=== PATIENT | female | born 1950 | race Caucasian/White ===

== ENCOUNTER 2017-05-18 22:00 | Inpatient (IN) | payer SELFPAY ==
[~2017-05-18 22:00] MED LIST: ACETAMINOPHEN 325 MG TAB PO PRN; FERR325C PO; ONDANSETRON HCL 4 MG/2 ML VIAL IVP PRN; SODIUM CHLORIDE 0.9% FLUSH 10 ML FLUSH IV FLUSH PRN
[2017-05-18 22:27] VITALS: BP 172/97; PULSE 103; RESP 21; TEMP 98.5; O2SAT 96
[2017-05-18] MEDS: SODIUM CHLORIDE 0.9% FLUSH 10 ML FLUSH IV FLUSH SCH (22:33)
--- NOTE | 2017-05-18 23:15 | HHI.HP ---
[facility] No Primary Care Physician Admission Diagnosis Obstructive jaundice secondary to liver mass . Diagnoses: (1) Liver mass (2) Obstructive jaundice Chief Complaint: "I looked yellow" Travel History International Travel<30 Days: No Contact w/Intl Traveler <30 Da: No History of Present Illness 66-year-old female with no significant medical history other than anemia who presents to the ED and [place] on 05/18/2017 for evaluation of painless jaundice and was found to have a large liver mass on CT scan. She was transferred to [facility] in [place] for further evaluation and management. The patient is seen in her hospital room after transfer from [place]. She is extremely pleasant and reports that she was in reasonably good health with no chronic medical conditions other than anxiety from the of her father in August and anemia that she's had since childhood. About 2-3 days ago, her and friend noted that she was looking yellow. When her friend came by to see her today, she told her she needed to go to the hospital to get checked because she was still looking severely discolored yellow. Location of symptom: entire skin surface. The patient denies any accompanying dizziness, chest pain, abdominal pain, shortness of breath, nausea, vomiting, diarrhea, bloody stool, hematuria, dysuria, or weakness. She does report dark to black stool that is chronic since she started taking iron for anemia. She reports weight loss resulting in her going from a clothing size of 20 to a size 14 over the past year. She attributed this weight loss to a "change in her taste buds" where she noted she did not like the same kind of foods that she used to like such as potato chips and soda. She reports eating multiple small meals per day and does not notice any change in her appetite. She has not had any pain. Of note, the patient reports continuing to have menstruation monthly - she has never experienced any menopause. 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 Small right-sided pleural effusion was noted. Liver cirrhosis with numerous varices noted mild ascites and anasarca. Review of Systems Except as stated in HPI: all other systems reviewed are Neg Past Family Social History Past Medical History Situational anxiety Anemia since she was a teenager Denies diabetes mellitus, hypertension, coronary artery disease, myocardial infarction, congestive heart failure, atrial fibrillation, COPD, asthma, emphysema, breathing problems, liver problems, hepatitis, kidney problems other than a remote history of pyelonephritis at age 22, DVT, PE, CVA, seizures, thyroid problems, or cancers. . Past Surgical History Tonsillectomy and adenoidectomy 1 . Reported Medications Reported Meds & Active Scripts Active Reported Iron (Ferrous Sulfate) 325 Mg Cap 324 Mg PO DAILY . Allergies: Coded Allergies: Penicillins (Verified Allergy, Unknown, 05/18/17) Active Ordered Medications . Current Medications Sodium Chloride (NS Flush) 2 ml UNSCH PRN IV FLUSH FLUSH AFTER USING IV ACCESS ; Start 05/18/17 at 21:00 Sodium Chloride (NS Flush) 2 ml BID IV FLUSH Last administered on 05/18/17t 22 :33; Start 05/18/17 at 21:00 Acetaminophen (Tylenol) 650 mg Q4H PRN PO TEMP > 100.4; Start 05/18/17 at 21: 00 Ondansetron HCl (Zofran Inj) 4 mg Q6H PRN IVP NAUSEA OR VOMITING; Start at 21:00 Family History Mother with emphysema, father age 77 from what sounds like aortic aneurysm . Social History The patient is originally from [place] and has 4 children and 8 grandchildren. She has been to her second for 33 years and lives in the [place] area. She moved to [place] when she was in her 20s - originally to [facility]. Tobacco: She has never smoked cigarettes though she has been experienced to heavy secondhand smoke Alcohol: Never was a heavy drinker and has not had an alcoholic beverage in over a year Illicit drugs: Remote use of marijuana when she was a teen but none since, denies any other illicit drug use such as IVDA or cocaine . Physical Exam Vital Signs Vital Signs Date Time Temp Pulse Resp B/P (MAP) Pulse Ox O2 Delivery O2 Flow Rate FiO2 05/18/17 22:27 98.5 103 21 172/97 (122 96 Physical Exam GENERAL: This is a very jaundiced female patient, in no apparent distress. SKIN: No rashes. Cool and dry. + jaundice. HEAD: Atraumatic. Normocephalic. EYES: + scleral icterus. No drainage. ENT: Nose without bleeding, purulent drainage. NECK: Trachea midline. No JVD or lymphadenopathy. CARDIOVASCULAR: Regular rate and rhythm without murmurs, gallops, or rubs. RESPIRATORY: Clear to auscultation. Breath sounds with diminished air exchange but equal bilaterally. No wheezes, rales, or rhonchi. GASTROINTESTINAL: Abdomen soft, non-tender, with large mass palpated right upper quadrant. Abdominal wall varices noted. No guarding. MUSCULOSKELETAL: Extremities without clubbing, cyanosis, or edema. No calf tenderness. She does have large ankles but states she's always had large ankles - no pitting edema noted. NEUROLOGICAL: Awake and alert. Motor and sensory grossly within normal limits. Normal speech. . Laboratory Labs Laboratory Tests Test 05/18/17 17:23 White Blood Count 8.0 TH/MM3 Red Blood Count 4.68 MIL/MM3 Hemoglobin 13.9 GM/DL Hematocrit 42.4 % Mean Corpuscular Volume 90.6 FL Mean Corpuscular Hemoglobin 29.7 PG Mean Corpuscular Hemoglobin Concent 32.8 % Red Cell Distribution Width 20.5 % Platelet Count 276 TH/MM3 Mean Platelet Volume 11.0 FL Immature Granulocyte % (Auto) 0.5 % Neutrophils (%) (Auto) 73.4 % Lymphocytes (%) (Auto) 17.0 % Monocytes (%) (Auto) 8.3 % Eosinophils (%) (Auto) 0.5 % Basophils (%) (Auto) 0.3 % Immature Granulocyte # (Auto) 0.0 TH/MM3 Neutrophils # (Auto) 5.9 TH/MM3 Lymphocytes # (Auto) 1.4 TH/MM3 Monocytes # (Auto) 0.7 TH/MM3 Eosinophils # (Auto) 0.0 TH/MM3 Basophils # (Auto) 0.0 TH/MM3 CBC Comment DIFF FINAL Differential Comment Urine Color ORANGE Urine Turbidity SL CLOUDY Urine pH 7.0 Urine Specific [place] 1.015 Urine Protein 300 OR GREATER mg/dL Urine Glucose (UA) 100 mg/dL Urine Ketones NEG mg/dL Urine Occult Blood SMALL Urine Nitrite POS Urine Bilirubin LARGE Urine Urobilinogen 4.0 MG/DL Urine Leukocyte Esterase TRACE Urine RBC 4-9 /hpf Urine WBC 15-19 /hpf Urine WBC Clumps RARE Urine Squamous Epithelial Cells > 8 /hpf Urine Renal Epithelial Cells 6-8 /hpf Urine Bacteria RARE /hpf Urine Hyaline Casts 3-5 /lpf Urine Granular Casts 6-9 /lpf Urine Coarse Granular Casts 3-5 /lpf Urine Waxy Casts /lpf Microscopic Urinalysis Comment CULTURE INDICATED Blood Urea Nitrogen 6 MG/DL Creatinine 0.80 MG/DL Random Glucose 119 MG/DL Total Protein 8.9 GM/DL Albumin 3.1 GM/DL Calcium Level 9.6 MG/DL Alkaline Phosphatase 699 U/L Aspartate Amino Transf (AST/SGOT) 174 U/L Alanine Aminotransferase (ALT/SGPT) 87 U/L Total Bilirubin 22.5 MG/DL Sodium Level 132 MEQ/L Potassium Level 3.4 MEQ/L Chloride Level 97 MEQ/L Carbon Dioxide Level 23.0 MEQ/L Anion Gap 12 MEQ/L Estimat Glomerular Filtration Rate 72 ML/MIN Lipase 113 U/L Acetaminophen Level LESS THAN 2.0 MCG/ML Ethyl Alcohol Level LESS THAN 3 MG/DL Imaging Last Impressions Abdomen/Pelvis CT 05/18/17 1058 Signed Impressions: Service Date/Time: Thursday, May 18, 2017 18:37 - CONCLUSION: 1. 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 2. Small right-sided pleural effusion. Liver cirrhosis with numerous varices as above. Mild ascites and anasarca. Satya Bridges MD Caprini VTE Risk Assessment Caprini VTE Risk Assessment: Mod/High Risk (score >= 2) Caprini Risk Assessment Model Point Value = 1 Point Value = 2 Point Value = 3 Point Value = 5 Age 41-60 Minor surgery BMI > 25 kg/m2 Swollen legs Varicose veins or History of unexplained or recurrent spontaneous Oral contraceptives or hormone replacement Sepsis (< 1 month) Serious lung disease, including pneumonia (< 1 month) Abnormal pulmonary function Acute myocardial infarction Congestive heart failure (< 1 month) History of inflammatory bowel disease Medical patient at bed rest Age 61-74 Arthroscopic surgery Major open surgery (> 45 min) Laparoscopic surgery (> 45 min) Malignancy Confined to bed (> 72 hours) Immobilizing plaster cast Central venous access Age >= 75 History of VTE Family history of VTE Factor V Leiden Prothrombin [id number] Lupus anticoagulant Anticardiolipin antibodies Elevated serum homocysteine Heparin-induced thrombocytopenia Other congenital or acquired thrombophilia Stroke (< 1 month) Elective arthroplasty Hip, pelvis, or leg fracture Acute spinal cord injury (< 1 month) Prophylaxis Regimen Total Risk Factor Score Risk Level Prophylaxis Regimen 0-1 Low Early ambulation 2 Moderate Order ONE of the following: *Sequential Compression Device (SCD) *Heparin 5000 units SQ BID 3-4 Higher Order ONE of the following medications: *Heparin 5000 units SQ TID *Enoxaparin/Lovenox 40 mg SQ daily (WT < 150 kg, CrCl > 30 mL/min) *Enoxaparin/Lovenox 30 mg SQ daily (WT < 150 kg, CrCl > 10-29 mL/min) *Enoxaparin/Lovenox 30 mg SQ BID (WT < 150 kg, CrCl > 30 mL/min) AND/OR *Sequential Compression Device (SCD) 5 or more Highest Order ONE of the following medications: *Heparin 5000 units SQ TID (Preferred with Epidurals) *Enoxaparin/Lovenox 40 mg SQ daily (WT < 150 kg, CrCl > 30 mL/min) *Enoxaparin/Lovenox 30 mg SQ daily (WT < 150 kg, CrCl > 10-29 mL/min) *Enoxaparin/Lovenox 30 mg SQ BID (WT < 150 kg, CrCl > 30 mL/min) AND *Sequential Compression Device (SCD) Assessment and Plan Problem List: (1) Liver mass ICD Code: R16.0 - Hepatomegaly, not elsewhere classified (2) Obstructive jaundice ICD Code: K83.8 - Other specified diseases of biliary tract (3) Elevated liver function tests ICD Code: R79.89 - Other specified abnormal findings of blood chemistry (4) Hypokalemia ICD Code: E87.6 - Hypokalemia (5) Hyponatremia ICD Code: E87.1 - Hypo-osmolality and hyponatremia (6) Situational anxiety ICD Code: F41.8 - Other specified anxiety disorders (7) Abnormal urinalysis ICD Code: R82.90 - Unspecified abnormal findings in urine Assessment and Plan 66-year-old female with no significant medical history other than anemia who presents to the ED and [facility] on 05/18/2017 for evaluation of painless jaundice and was found to have a large liver mass on CT scan. She was transferred to [facility] in [place] for further evaluation and management. Obstructive jaundice due to likely malignant liver mass - consult gastroenterology - patient will need a liver biopsy - NPO after midnight - monitor vital signs q4h Elevated liver function tests- secondary to biliary obstruction - Total bilirubin 22.5 on admission - AST 174, ALT 87, alkaline phosphatase 699 on admission - Acetaminophen less than 2.0 and ethyl alcohol level less than 3 - Monitor CMP - follow trends Hypokalemia - Replace potassium - Recheck BMP in a.m. and replace potassium if needed Hyponatremia - suspect dilutional due to advanced liver disease - Monitor BMP Situational anxiety - patient refuses any medicinal treatments for anxiety - continue to monitor Abnormal UA - culture was indicated - await results - unlikely UTI, patient asymptomatic, WBC normal, afebrile - will not add antibiotics DVT prophylaxis - SCDs/TEDs Discussed Condition With Patient and Dr. Chavez . Physician Certification 2 Midnight Certification Type: Admission for Inpatient Services Order for Inpatient Services The services are ordered in accordance with Medicare regulations or non- Medicare payer requirements, as applicable. In the case of services not specified as inpatient-only, they are appropriately provided as inpatient services in accordance with the 2-midnight benchmark. Estimated LOS (days): 3 days is the estimated time the patient will need to remain in the hospital, assuming treatment plan goals are met and no additional complications. Post-Hospital Plan: Home Beth Mccarthy May 18, 2017 23:15
[2017-05-18] MEDS ORDERED: POTASSIUM CHLORIDE 20 MEQ CONTROLLED RELEASE TAB PO ONE (23:45)
[2017-05-19 00:11] VITALS: BP 150/90; PULSE 96; RESP 16; TEMP 98.6; O2SAT 98
[2017-05-19 05:37] VITALS: BP 140/96; PULSE 126; RESP 18; TEMP 98.4; O2SAT 94
[2017-05-19 07:37] LABS: AUTOMATED NEUTROPHIL # 4.9 TH/MM3 (1.8-7.7); BASOPHIL % 0.5 % (0.0-2.0); EOSINOPHIL % 0.7 % (0.0-4.0); HEMATOCRIT 38.3 % (35.0-46.0); HEMO FLAGS DIFF FINAL; LYMPH % 16.1 % (9.0-44.0); LYMPHOCYTE # 1.1 TH/MM3 (1.0-4.8); MEAN CELL VOLUME 88.3 FL (80.0-100.0); MONO % 10.8 % (0.0-8.0); NEUT % 71.9 % (16.0-70.0); PLATELET COUNT 254 TH/MM3 (150-450); RED BLOOD COUNT 4.34 MIL/MM3 (4.00-5.30); RED CELL DISTRIBUTION WIDTH 19.6 % (11.6-17.2); WHITE BLOOD COUNT 6.8 TH/MM3 (4.0-11.0)
[2017-05-19 07:58] LABS: ALT (GPT) 71 U/L (10-53)
[2017-05-19 08:00] VITALS: BP 170/100; PULSE 97; RESP 18; TEMP 98.3; O2SAT 97
[2017-05-19 08:26] LABS: ALKALINE PHOSPHATASE 580 U/L (45-117); ANION GAP 8 MEQ/L (5-15); AST (GOT) 138 U/L (15-37); BICARBONATE 26.9 MEQ/L (21.0-32.0); BLOOD UREA NITROGEN 5 MG/DL (7-18); CHLORIDE 100 MEQ/L (98-107); GLOMERULAR FILTRATION RATE 101 ML/MIN (>89); POTASSIUM 3.8 MEQ/L (3.5-5.1); SODIUM (NA) 135 MEQ/L (136-145); TOTAL BILIRUBIN ADULT 20.5 MG/DL (0.2-1.0)
[2017-05-19] MEDS: FERROUS SULFATE 325 MG (65 MG ELEMENTAL IRON) TAB PO SCH (09:39)
[2017-05-19] MEDS: SODIUM CHLORIDE 0.9% FLUSH 10 ML FLUSH IV FLUSH SCH ×2 (09:41→20:15)
--- NOTE | 2017-05-19 10:03 | PD.CONS ---
HPI History of Present Illness This is a 66 year old female who presented to the ED in [place] with c/o yellowing of skin. No other associated symptoms reported. Patient states that about 2-3 days ago her and friends noted her looking "yellow." She decided to wait a few days and see if it would go away. When her friend went to her house on 05/18 she told her she needed to go to the hospital for evaluation. [place] ED noted large liver mass on CT scan. Patient was subsequently transferred to [facility] in [place] for further evaluation. No significant medical history reported by patient, besides anemia. Patient denies chest pain, shortness of breath, abdominal pain, nausea, vomiting, change in appetite, or change in bowel habits. Does reports weight loss over past year ( size 20 to size 14). Reports she has had a change in taste, which included a dislike in potato chips and soda. Patient states she still has a good appetite and eats multiple small erik a day. (Susana Tidwell) PFSH Past Medical History Situational anxiety, secondary to father's in August 2016 Anemia, since she was a teenager Past Surgical History Tonsillectomy and adenoidectomy 1 (Susana Tidwell) Coded Allergies: Penicillins (Verified Allergy, Unknown, 05/18/17) Medications Current Medications Medications (Trade) Dose Ordered Sig/Annabelle Route PRN Reason Start Time Stop Time Status Last Admin Dose Admin Sodium Chloride (NS Flush) 2 ml UNSCH PRN IV FLUSH FLUSH AFTER USING IV ACCESS 05/18/17 21:00 Sodium Chloride (NS Flush) 2 ml BID IV FLUSH 05/18/17 21:00 05/19/17 09:41 Acetaminophen (Tylenol) 650 mg Q4H PRN PO TEMP > 100.4 05/18/17 21:00 Ondansetron HCl (Zofran Inj) 4 mg Q6H PRN IVP NAUSEA OR VOMITING 05/18/17 21:00 Ferrous Sulfate (Ferrous Sulfate) 325 mg DAILY PO 05/19/17 09:00 05/19/17 09:39 Family History Mother, emphysema Father age 77 (aortic aneurysm?) Social History ETOH, denies alcohol use in over a year. Reports she was never a heavy drinker Tobacco, denies use. Heavy secondhand smoke exposure Illicit Drugs, denies (Susana Tidwell) Review of Systems Constitutional: DENIES: Diaphoretic episodes, Fatigue, Fever, Weight gain, Weight loss, Chills, Dizziness, Change in appetite, Night Sweats Endocrine: DENIES: Polydipsia, Polyuria Eyes: DENIES: Blurred vision, Photosensitivity, Double Vision Ears, nose, mouth, throat: DENIES: Hearing loss, Vertigo, Oral lesions, Throat pain, Hoarseness Respiratory: DENIES: Cough, Wheezing, Hemoptysis, Sputum production, Shortness of breath Cardiovascular: DENIES: Chest pain, Palpitations, Syncope, Lower Extremity Edema, Orthopnea, Claudication Gastrointestinal: DENIES: Abdominal pain, Black stools, Bloody stools, Constipation, Diarrhea, Nausea, Vomiting, Difficulty Swallowing, Anorexia, Odynophagia, Swelling of Abdomen, Heartburn, Hematemesis Genitourinary: DENIES: Urinary frequency, Urinary incontinence, Urgency, Hematuria, Dysuria, Nocturia Musculoskeletal: DENIES: Joint pain, Muscle aches, Stiffness, Joint Swelling, Back pain, Neck pain Integumentary: COMPLAINS OF: Abnormal pigmentation, DENIES: Nail changes, Pruritus, Rash, Jaundice Hematologic/lymphatic: DENIES: Bruising, Lymphadenopathy Immunologic/allergic: DENIES: Eczema, Urticaria Neurologic: DENIES: Abnormal gait, Headache, Localized weakness, Paresthesias Psychiatric: DENIES: Anxiety, Confusion, Mood changes, Depression, Agitation, Suicidal Ideation (Susana Tidwell) GI Exam Vitals I&O Vital Signs Date Time Temp Pulse Resp B/P (MAP) Pulse Ox O2 Delivery O2 Flow Rate FiO2 05/19/17 05:37 98.4 126 18 140/96 (111) 94 05/19/17 00:11 98.6 96 16 150/90 (110) 98 05/18/17 22:27 98.5 103 21 172/97 (122) 96 I/O 05/18/17 05/18/17 05/18/17 05/19/17 05/19/17 05/19/17 07:00 15:00 23:00 07:00 15:00 23:00 Intake Total 360 ml Balance 360 ml Intake Oral 360 ml # Voids 1 Laboratory Test 05/19/17 07:13 White Blood Count 6.8 TH/MM3 Red Blood Count 4.34 MIL/MM3 Hemoglobin 13.0 GM/DL Hematocrit 38.3 % Mean Corpuscular Volume 88.3 FL Mean Corpuscular Hemoglobin 30.0 PG Mean Corpuscular Hemoglobin Concent 34.0 % Red Cell Distribution Width 19.6 % Platelet Count 254 TH/MM3 Mean Platelet Volume 8.2 FL Neutrophils (%) (Auto) 71.9 % Lymphocytes (%) (Auto) 16.1 % Monocytes (%) (Auto) 10.8 % Eosinophils (%) (Auto) 0.7 % Basophils (%) (Auto) 0.5 % Neutrophils # (Auto) 4.9 TH/MM3 Lymphocytes # (Auto) 1.1 TH/MM3 Monocytes # (Auto) 0.7 TH/MM3 Eosinophils # (Auto) 0.0 TH/MM3 Basophils # (Auto) 0.0 TH/MM3 CBC Comment DIFF FINAL Differential Comment Blood Urea Nitrogen 5 MG/DL Creatinine 0.60 MG/DL Random Glucose 83 MG/DL Total Protein 7.6 GM/DL Albumin 2.7 GM/DL Calcium Level 9.3 MG/DL Alkaline Phosphatase 580 U/L Aspartate Amino Transf (AST/SGOT) 138 U/L Alanine Aminotransferase (ALT/SGPT) 71 U/L Total Bilirubin 20.5 MG/DL Sodium Level 135 MEQ/L Potassium Level 3.8 MEQ/L Chloride Level 100 MEQ/L Carbon Dioxide Level 26.9 MEQ/L Anion Gap 8 MEQ/L Estimat Glomerular Filtration Rate 101 ML/MIN Physical Examination HEENT: Normocephalic; atraumatic. + sclera icterus NECK: Neck is supple. CHEST: CTA CARDIAC: RRR with no murmur gallop or rubs. ABDOMEN: Soft, nondistended, nontender; RUQ large mass on palpation. + abdominal wall varices. EXTREMITIES: No clubbing, cyanosis, or edema. SKIN: Normal; no rash; no jaundice. COMMUNICABLE DISEASE SPECIALIST: No focal deficits; alert and oriented x 3 (Susana Tidwell) Assessment and Plan Plan ASSESSMENT: - Obstructive jaundice, due to liver mass. Likely malignant. Liver function tests elevated secondary to biliary obstruction. T. Bili 20.5, AST 138, ALT 71, ALK Phos 580. CT Abdomen/Pelvis 05/18/17--1. 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 2. Small right-sided pleural effusion. Liver cirrhosis with numerous varices as above. Mild ascites and anasarca. Patient is asymptomatic. Denies abdominal pain. No nausea or vomiting. Has good appetite. PLAN: - [place] - Liver biopsy - NPO after MN - Monitor labs - Supportive care - Further recommendations to follow based on results of above. Patient seen and examined by Dr. Bello and myself and this note is written on his behalf. (Susana Tidwell) Physician Comments Patient seen and examined Agree with above Continue with current supportive care Monitor labs First I would recommend tumor marker evaluation If the tumor markers are nondiagnostic then we can pursue a liver biopsy Case discussed with Dr. Soria (Luan Bello MD) Susana Tidwell May 19, 2017 10:03 Luan Bello MD May 19, 2017 13:29
--- NOTE | 2017-05-19 10:03 | HHI.PR ---
Subjective Remarks Follow-up for painless jaundice, imaging evidence of large liver mass. Patient is currently doing well. Denies any chest pain, shortness of breath, fever or chills. She reports weight loss in the last 1 year although could not quantify. She reports no heavy alcohol history, no history of hepatitis B or C that she knows of. Objective Vitals Vital Signs Date Time Temp Pulse Resp B/P (MAP) Pulse Ox O2 Delivery O2 Flow Rate FiO2 05/19/17 05:37 98.4 126 18 140/96 (111) 94 05/19/17 00:11 98.6 96 16 150/90 (110) 98 05/18/17 22:27 98.5 103 21 172/97 (122) 96 I/O 05/18/17 05/18/17 05/18/17 05/19/17 05/19/17 05/19/17 07:00 15:00 23:00 07:00 15:00 23:00 Intake Total 360 ml Balance 360 ml Intake Oral 360 ml # Voids 1 Result Diagram: 05/19/17 0713 05/19/17 0713 Imaging Abdomen/Pelvis CT 05/18/17 1718 Signed Impressions: Service Date/Time: Thursday, May 18, 2017 18:37 - CONCLUSION: 1. 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 2. Small right-sided pleural effusion. Liver cirrhosis with numerous varices as above. Mild ascites and anasarca. Satya Bridges MD Objective Remarks GENERAL: Alert, oriented 3, NAD. SKIN: Warm and dry. Diffuse jaundice appearance. HEAD: Normocephalic. EYES: scleral icterus present. No injection or drainage. NECK: Supple, trachea midline. No JVD or lymphadenopathy. CARDIOVASCULAR: Regular rate and rhythm without murmurs, gallops, or rubs. RESPIRATORY: Breath sounds equal bilaterally. No accessory muscle use. GASTROINTESTINAL: Abdomen soft, non-tender, nondistended. MUSCULOSKELETAL: No cyanosis, or edema. BACK: Nontender without obvious deformity. No CVA tenderness. Procedures None A/P Problem List: (1) Liver mass ICD Code: R16.0 - Hepatomegaly, not elsewhere classified (2) Obstructive jaundice ICD Code: K83.8 - Other specified diseases of biliary tract (3) Elevated liver function tests ICD Code: R79.89 - Other specified abnormal findings of blood chemistry (4) Hypokalemia ICD Code: E87.6 - Hypokalemia (5) Hyponatremia ICD Code: E87.1 - Hypo-osmolality and hyponatremia (6) Situational anxiety ICD Code: F41.8 - Other specified anxiety disorders (7) Abnormal urinalysis ICD Code: R82.90 - Unspecified abnormal findings in urine Assessment and Plan 66-year-old female with no significant medical history other than anemia who presents to the ED and [place] on 05/18/2017 for evaluation of painless jaundice and was found to have a large liver mass on CT scan. She was transferred to [facility] in [place] for further evaluation and management. Probable hepatocellular carcinoma - CT abd/pelvis showed a large mass. Images reviewed by me. - consult gastroenterology - NPO after midnight for possible liver biopsy. - Discussed with GI and radiology. Radiology does not feel Triple phase CT scan will give any additional info. - AFP along with CEA and CA19-9 are pending. If AFP is significantly elevated , perhaps biopsy could be avoided as well. - Will consider Oncology consult in the AM based on further lab work. Elevated liver function tests- secondary to biliary obstruction - Total bilirubin 22.5 on admission - AST 174, ALT 87, alkaline phosphatase 699 on admission. These are 138, 71, 580 respectively today. - Acetaminophen less than 2.0 and ethyl alcohol level less than 3 Mild Hypokalemia Mild Hyponatremia - Replaced potassium. K+ today 3.8. Na 135. Full code. SCDs. Will consider pharmacological DVT prophylaxis after biopsy tomorrow. Isaac Soria DO May 19, 2017 10:03 am
[2017-05-19] MEDS ORDERED: MORPHINE SULFATE 2 MG/ML INJ IV PUSH PRN (14:00)
[2017-05-19 15:00] VITALS: BP 152/87; PULSE 95; RESP 18; TEMP 98.9; O2SAT 96
[2017-05-19 19:45] VITALS: BP 97/55; PULSE 100; RESP 17; TEMP 98.2; O2SAT 96
[2017-05-19 20:13] VITALS: BP 165/97; PULSE 100; RESP 20; TEMP 98.6; O2SAT 98
[2017-05-20 00:32] VITALS: BP 164/98; PULSE 85; RESP 16; TEMP 98.3; O2SAT 95
[2017-05-20 05:52] VITALS: BP 151/95; PULSE 87; RESP 18; TEMP 97.9; O2SAT 96
[2017-05-20 07:04] LABS: INTERNATIONAL NORMALIZED RATIO 1.2 RATIO; PROTHROMBIN TIME - PATIENT 13.4 SEC (9.8-11.6)
[2017-05-20] MEDS: SODIUM CHLORIDE 0.9% FLUSH 10 ML FLUSH IV FLUSH SCH ×2 (08:43→20:19)
[2017-05-20 08:50] VITALS: BP 171/99; PULSE 85; RESP 18; TEMP 97.7; O2SAT 100
--- NOTE | 2017-05-20 08:59 | HHI.GIFU ---
Subjective Remarks Resting in bed. No fevers/chills, nausea, vomiting, or abdominal pain. Asking how long she will be in the hospital and states she is anxious to go home. Objective Vitals I&O Vital Signs Date Time Temp Pulse Resp B/P (MAP) Pulse Ox O2 Delivery O2 Flow Rate FiO2 05/20/17 05:52 97.9 87 18 151/95 (113) 96 05/20/17 00:32 98.3 85 16 164/98 (120) 95 05/19/17 21:24 16 05/19/17 20:13 98.6 100 20 165/97 (119) 98 05/19/17 19:45 98.2 100 17 97/55 (69) 96 05/19/17 15:00 98.9 95 18 152/87 (108) 96 I/O 05/19/17 05/19/17 05/19/17 05/20/17 05/20/17 05/20/17 07:00 15:00 23:00 07:00 15:00 23:00 Intake Total 360 ml 1080 ml Balance 360 ml 1080 ml Intake Oral 360 ml 1080 ml # Voids 1 3 Laboratory Laboratory Tests Test 05/19/17 17:52 05/20/17 06:14 Tumor Marker Alpha Fetoprotein 24.8 Carcinoembryonic Antigen 0.9 CA 19-9 Antigen 3.4 Prothrombin Time 13.4 Prothromb Time International Ratio 1.2 Physical Exam HEENT: Normocephalic; atraumatic; + jaundice. CHEST: CTA CARDIAC: RRR ABDOMEN: Soft, mildly distended ascites, nontender; bowel sounds are present in all four quadrants. EXTREMITIES: BLE edema. SKIN: Normal; no rash; + jaundice. FORM STRIPPER: No focal deficits; alert and oriented times three. Assessment and Plan Plan ASSESSMENT: - Painless obstructive jaundice, due to liver mass, likely malignant. CT Abdomen /Pelvis 05/18/17--1. 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 2. Small right-sided pleural effusion. Liver cirrhosis with numerous varices as above. Mild ascites and anasarca. Asymptomatic. Hepatitis panel pending. Rpt. labs today. - Liver mass. AFP 24.8, CEA 0.9, Ca19-9 3.4. Going for liver biopsy today. - Liver cirrhosis with varcies and ascites. Pt unaware of this. Never a heavy drinker, has not had any ETOH in past year. - Abnormal weight loss. States decreased appetite, change in taste with a drop in size from 20-14 over past year. - Mild hypokalemia, hyponatremia. Per attending. PLAN: - NPO for liver biopsy - CT guided liver biopsy - CBC, CMP today - Await hepatitis - Will get liver workup given evidence of cirrhosis with no obvious etiology - Supportive care - Further recommendations to follow based on results of above. - Pt seen and examined by Dr. Mckeon and myself and this note is written on his behalf. Leslye Barrios May 20, 2017 08:59
[2017-05-20] MEDS ORDERED: amLODIPine BESYLATE 5 MG TAB PO ONE (09:45)
--- NOTE | 2017-05-20 10:05 | HHI.PR ---
Subjective Remarks Follow-up for painless jaundice, imaging evidence of large liver mass. Patient is currently doing well. No acute concerns. Waiting for biopsy. Objective Vitals Vital Signs Date Time Temp Pulse Resp B/P (MAP) Pulse Ox O2 Delivery O2 Flow Rate FiO2 05/20/17 08:50 97.7 171/99 (123) 05/20/17 05:52 97.9 87 18 151/95 (113) 96 05/20/17 00:32 98.3 85 16 164/98 (120) 95 05/19/17 21:24 16 05/19/17 20:13 98.6 100 20 165/97 (119) 98 05/19/17 19:45 98.2 100 17 97/55 (69) 96 05/19/17 15:00 98.9 95 18 152/87 (108) 96 I/O 05/19/17 05/19/17 05/19/17 05/20/17 05/20/17 05/20/17 07:00 15:00 23:00 07:00 15:00 23:00 Intake Total 360 ml 1080 ml Balance 360 ml 1080 ml Intake Oral 360 ml 1080 ml # Voids 1 3 Result Diagram: 05/19/1771205/19/17712 Objective Remarks GENERAL: Alert, oriented 3, NAD. SKIN: Warm and dry. Diffuse jaundice appearance. HEAD: Normocephalic. EYES: scleral icterus present. No injection or drainage. NECK: Supple, trachea midline. No JVD or lymphadenopathy. CARDIOVASCULAR: Regular rate and rhythm without murmurs, gallops, or rubs. RESPIRATORY: Breath sounds equal bilaterally. No accessory muscle use. GASTROINTESTINAL: Abdomen soft, non-tender, nondistended. MUSCULOSKELETAL: No cyanosis, or edema. BACK: Nontender without obvious deformity. No CVA tenderness. Procedures None A/P Problem List: (1) Liver mass ICD Code: R16.0 - Hepatomegaly, not elsewhere classified (2) Obstructive jaundice ICD Code: K83.8 - Other specified diseases of biliary tract (3) Elevated liver function tests ICD Code: R79.89 - Other specified abnormal findings of blood chemistry (4) Hypokalemia ICD Code: E87.6 - Hypokalemia (5) Hyponatremia ICD Code: E87.1 - Hypo-osmolality and hyponatremia (6) Situational anxiety ICD Code: F41.8 - Other specified anxiety disorders (7) Abnormal urinalysis ICD Code: R82.90 - Unspecified abnormal findings in urine Assessment and Plan 66-year-old female with no significant medical history other than anemia who presents to the ED and [place] on 05/18/2017 for evaluation of painless jaundice and was found to have a large liver mass on CT scan. She was transferred to [facility] in [place] for further evaluation and management. Probable hepatocellular carcinoma - CT abd/pelvis showed a large mass. Images reviewed by me. - consult gastroenterology - Liver biopsy is pending. - AFP 24.8, CEA 0.9, CA 19-9 3.4. Elevated liver function tests- secondary to biliary obstruction - Total bilirubin 22.5 on admission - AST 174, ALT 87, alkaline phosphatase 699 on admission. These are 138, 71, 580 - Acetaminophen less than 2.0 and ethyl alcohol level less than 3 Mild Hypokalemia Mild Hyponatremia - Replaced potassium. K+ 3.8. Na 135. Full code. SCDs. Discharge plan: If cleared by GI and oncology, patient can potentially be discharged home with outpatient follow up with GI, Oncology. Isaac Soria DO May 20, 2017 10:05 am
[2017-05-20] MEDS ORDERED: MIDAZOLAM HCL 2 MG/2 ML VIAL ONE (10:50)
[2017-05-20] MEDS ORDERED: LIDOCAINE HCL 1% 20 ML VIAL ONE (11:09)
--- NOTE | 2017-05-20 12:03 | PD.RAD ---
Post CT Procedure Prog Note Pre Procedure Diagnosis: (1) Liver mass Post Procedure Diagnosis: (1) Liver mass Procedure Date: May 20, 2017 Supervising Radiologist: Alfonso Manzano Anesthesia: Conscious Sedation Plan of Activity Patient to Unit: Nursing Unit Patient Condition: Good See PACS Report for procedural detail/treatment Alfonso Manzano MD May 20, 2017 12:03
[2017-05-20] MEDS ORDERED: GELATIN 12 MM/7 MM FOAM ONE (12:28)
--- NOTE | 2017-05-20 13:17 | RADRPT ---
EXAM DATE/TIME: 05/20/2017 11:38 [place] COMPARISON: No previous studies available for comparison. INDICATIONS : Painless jaundice with large infiltrative central hepatic mass SEDATION TIME: 15 minutes BIOPSY SITE: Liver MEDICATION(S): 1.) 2 mg midazolam (Versed) IV 2.) 100 mcg fentanyl (Sublimaze) IV DEVICE(S): 1.) 18 gauge BioPince needle 2.) 15 gauge Temno core biopsy needle introducer MEDICAL HISTORY : None. SURGICAL HISTORY : None. ENCOUNTER: Initial ACUITY: 3 days PAIN SCORE: 0/10 LOCATION: Right upper quadrant A total of two core specimen(s) were obtained and sent to the laboratory for pathologic evaluation. PROCEDURE: 1. CT guided liver biopsy. 2. Conscious sedation with continuous EKG and oximetry monitoring. 3. EKG and oximetry remained stable throughout the procedure. Prior to the procedure informed consent was obtained. Any appropriate prior imaging studies were rev iewed. Using automated exposure control and adjustment of the mA and/or kV according to patient size, radiat ion dose was kept as low as reasonably achievable to obtain optimal diagnostic quality images. DICOM format image data is available electronically for review and comparison. The site was prepped in a sterile fashion. Full sterile technique was used, including cap, mask, val rile gloves and gown and a large sterile sheet. Hand hygiene and 2% chlorhexidine and/or betadine/al cohol prep was utilized per protocol for cutaneous antisepsis. The skin and subcutaneous tissues wer e infiltrated with local anesthetic solution. With CT guidance the previously identified target was localized. Biopsy was performed using the presc ribed needle as above. Adequate hemostasis was obtained with compression at the puncture site. Follow-up CT scan reveals no hemorrhage. The patient tolerated the procedure well and there were no complications. The patient was returned to the Radiology Outpatient Unit in stable condition. CONCLUSION: Uncomplicated CT guided biopsy. Alfonso Manzano MD on May 20, 2017 at 13:14 Board Certified Radiologist. This report was verified electronically.
[2017-05-20 15:40] LABS: AUTOMATED NEUTROPHIL # 5.6 TH/MM3 (1.8-7.7); BASOPHIL % 0.5 % (0.0-2.0); EOSINOPHIL % 0.5 % (0.0-4.0); HEMATOCRIT 41.9 % (35.0-46.0); HEMO FLAGS DIFF FINAL; LYMPH % 13.3 % (9.0-44.0); MEAN CELL VOLUME 89.6 FL (80.0-100.0); MEAN CORPUSCULAR HGB CONC 33.5 % (32.0-36.0); NEUT % 77.7 % (16.0-70.0); PLATELET COUNT 285 TH/MM3 (150-450); RED BLOOD COUNT 4.67 MIL/MM3 (4.00-5.30); RED CELL DISTRIBUTION WIDTH 20.5 % (11.6-17.2); WHITE BLOOD COUNT 7.2 TH/MM3 (4.0-11.0)
[2017-05-20 16:01] LABS: ALKALINE PHOSPHATASE 643 U/L (45-117); ANION GAP 7 MEQ/L (5-15); AST (GOT) 184 U/L (15-37); BICARBONATE 21.3 MEQ/L (21.0-32.0); BLOOD UREA NITROGEN 6 MG/DL (7-18); CHLORIDE 100 MEQ/L (98-107); FERRITIN 342 NG/ML (8-252); GLOMERULAR FILTRATION RATE 73 ML/MIN (>89); POTASSIUM 5.6 MEQ/L (3.5-5.1); SODIUM (NA) 128 MEQ/L (136-145); TOTAL BILIRUBIN ADULT 24.6 MG/DL (0.2-1.0); TRANSFERRIN IRON PROFILE 231 MG/DL (200-360)
[2017-05-20 16:25] LABS: ALT (GPT) 74 U/L (10-53)
[2017-05-20 17:00] VITALS: BP 157/87; PULSE 87; RESP 18; TEMP 99; O2SAT 100
[2017-05-20] MEDS: FERROUS SULFATE 325 MG (65 MG ELEMENTAL IRON) TAB PO SCH (18:03)
[2017-05-20] MEDS: amLODIPine BESYLATE 5 MG TAB PO SCH (19:06)
[2017-05-20 20:30] VITALS: BP 143/78; PULSE 95; RESP 18; TEMP 98.6; O2SAT 97
[2017-05-21 00:03] VITALS: BP 140/85; PULSE 95; RESP 18; TEMP 98.2; O2SAT 96
[2017-05-21 04:35] VITALS: BP 142/77; PULSE 87; RESP 16; TEMP 98; O2SAT 94
[2017-05-21 06:05] LABS: AUTOMATED NEUTROPHIL # 4.7 TH/MM3 (1.8-7.7); BASOPHIL % 0.3 % (0.0-2.0); EOSINOPHIL % 0.7 % (0.0-4.0); HEMATOCRIT 36.9 % (35.0-46.0); HEMO FLAGS DIFF FINAL; LYMPH % 14.2 % (9.0-44.0); LYMPHOCYTE # 0.9 TH/MM3 (1.0-4.8); MEAN CELL VOLUME 88.8 FL (80.0-100.0); MEAN CORPUSCULAR HEMOGLOBIN 30.5 PG (27.0-34.0); MEAN CORPUSCULAR HGB CONC 34.3 % (32.0-36.0); MONO % 8.8 % (0.0-8.0); PLATELET COUNT 249 TH/MM3 (150-450); RED BLOOD COUNT 4.16 MIL/MM3 (4.00-5.30); RED CELL DISTRIBUTION WIDTH 20.3 % (11.6-17.2); WHITE BLOOD COUNT 6.2 TH/MM3 (4.0-11.0)
[2017-05-21 06:42] LABS: ALKALINE PHOSPHATASE 578 U/L (45-117); ALT (GPT) 65 U/L (10-53); ANION GAP 9 MEQ/L (5-15); AST (GOT) 132 U/L (15-37); BICARBONATE 25.3 MEQ/L (21.0-32.0); BLOOD UREA NITROGEN 6 MG/DL (7-18); CHLORIDE 100 MEQ/L (98-107); GLOMERULAR FILTRATION RATE 111 ML/MIN (>89); POTASSIUM 3.6 MEQ/L (3.5-5.1); SODIUM (NA) 134 MEQ/L (136-145)
--- NOTE | 2017-05-21 07:02 | MB ---
cc: KATE REAVES M.D. DATE OF CONSULTATION 05/20/2017 REASON FOR CONSULTATION Consult requested by hospitalist for evaluation of liver mass which is highly suspicious for malignancy. HISTORY OF PRESENT ILLNESS This is a 66-year-old female. She does not have any significant medical problems. She does not see any local family doctor as she does not have any health insurance. She lives in the [place] Area. She presented to the emergency room in [place] over the weekend when her family noticed that he she was jaundiced. She has no pain. She had a CAT scan of the abdomen and pelvis which showed a large liver mass. The patient was subsequently transferred to [facility] for further workup. GI has been consulted. The patient underwent liver biopsy today by interventional radiologist. The pathology report is pending. I have been asked to see the patient for further evaluation. REVIEW OF SYSTEMS The patient denies any weight loss. She denies any abdominal pain. She denies any nausea or vomiting. She is complaining of being yellow. The rest of the review of systems is negative. PAST MEDICAL HISTORY Anxiety. PAST SURGICAL HISTORY Tonsillectomy and adenoidectomy x1. ALLERGIES PENICILLIN MEDICATIONS Prior to coming to the hospital - [place]. FAMILY HISTORY Distant cousin had lung cancer in 1980s. SOCIAL HISTORY The patient does not smoke cigarettes, does not drink alcohol. She is a homemaker. PHYSICAL EXAMINATION GENERAL: This is a well-developed, well-nourished white female in no apparent distress. VITAL SIGNS: Temperature 97.7, heart rate is 87, blood pressure 151/95, O2 saturation 96%. HEENT: PERRLA, EOMI. Sclerae deeply icteric. No oral lesions noted. NECK: No lymphadenopathy noted. LUNGS: Clear. No wheezing, rhonchi or rales. HEART: Regular rate and rhythm. ABDOMEN: Soft. Tenderness noted in the right upper quadrant due to the recent liver biopsy. EXTREMITIES: No pedal edema. NEUROLOGY: Awake, alert, oriented x 3. SKIN: No significant lesions noted. RADIOLOGICAL STUDIES Reviewed on the EMR. LABORATORY DATA Lab studies reviewed in the EMR ASSESSMENT A large 16.8 cm mass in the right lobe of the liver with intrahepatic biliary ductal dilatation and metastatic kizzy adenopathy to the zafar hepatis measuring up to 3.6 cm. There is also a small right-sided pleural effusion noted. She also has liver cirrhosis with numerous varices, mild ascites and anasarca. PLAN 1. I have reviewed her available records and I have discussed with the patient regarding the CAT scan of the abdomen and pelvis findings. She has cirrhosis of the liver. She states she does not drink alcohol. Her hepatitis screen came back negative. 2. Workup of cirrhosis has been initiated by the cattle shipper. The comprehensive metabolic profile is significant for a total bilirubin of 24.6, AST of 184, ALT of 74, alkaline phos 643, albumin is 2.6. The alpha-fetoprotein is 24.8; the upper limit of normal is 8. CEA is normal at 0.9, CA19-9 is normal at 3.4. I have discussed with the patient regarding the possibility of primary hepatocellular carcinoma. She underwent liver biopsy today; the results of that are still pending. Once we have the pathology report available, then we will discuss with the patient regarding the treatment plan. The patient has obstructive jaundice. I am not sure whether the patient is a candidate for PTCA or ERCP with biliary stent placement. I will leave it up to the GI to discuss with the patient regarding either ERCP with the bile stent or PTCA for obstructive jaundice. If no procedure is scheduled, then the patient is cleared to be discharged and can be followed up as an outpatient. Thank you for asking my opinion MD ZULEYKA Hollingsworth/LORENA /6:07 PM /6:41 AM
[2017-05-21] MEDS ORDERED: amLODIPine BESYLATE 5 MG TAB PO SCH (09:00)
[2017-05-21] MEDS: SODIUM CHLORIDE 0.9% FLUSH 10 ML FLUSH IV FLUSH SCH (09:00)
[2017-05-21] MEDS ORDERED: AMLO5 PO (09:12)
[2017-05-21] MEDS ORDERED: OXYC-392 PO (09:12)
--- NOTE | 2017-05-21 09:19 | HHI.DS ---
Discharge Summary Admission Date May 18, 2017 at 10:02 pm Discharge Date: May 21, 2017 Admitting Diagnosis Obstructive jaundice secondary to liver mass . (1) Liver mass ICD Code: R16.0 - Hepatomegaly, not elsewhere classified Diagnosis: Principal (2) Obstructive jaundice ICD Code: K83.8 - Other specified diseases of biliary tract (3) Elevated liver function tests ICD Code: R79.89 - Other specified abnormal findings of blood chemistry (4) Hypokalemia ICD Code: E87.6 - Hypokalemia (5) Hyponatremia ICD Code: E87.1 - Hypo-osmolality and hyponatremia (6) Situational anxiety ICD Code: F41.8 - Other specified anxiety disorders (7) Abnormal urinalysis ICD Code: R82.90 - Unspecified abnormal findings in urine Procedures CT guided liver biopsy 05/20/2017. Brief History - From Admission 66-year-old female with no significant medical history other than anemia who presents to the ED and [place] on 05/18/2017 for evaluation of painless jaundice and was found to have a large liver mass on CT scan. She was transferred to [facility] in [place] for further evaluation and management. The patient is seen in her hospital room after transfer from [place]. She is extremely pleasant and reports that she was in reasonably good health with no chronic medical conditions other than anxiety from the of her father in August and anemia that she's had since childhood. About 2-3 days ago, her and friend noted that she was looking yellow. When her friend came by to see her today, she told her she needed to go to the hospital to get checked because she was still looking severely discolored yellow. Location of symptom: entire skin surface. The patient denies any accompanying dizziness, chest pain, abdominal pain, shortness of breath, nausea, vomiting, diarrhea, bloody stool, hematuria, dysuria, or weakness. She does report dark to black stool that is chronic since she started taking iron for anemia. She reports weight loss resulting in her going from a clothing size of 20 to a size 14 over the past year. She attributed this weight loss to a "change in her taste buds" where she noted she did not like the same kind of foods that she used to like such as potato chips and soda. She reports eating multiple small meals per day and does not notice any change in her appetite. She has not had any pain. Of note, the patient reports continuing to have menstruation monthly - she has never experienced any menopause. 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 Small right-sided pleural effusion was noted. Liver cirrhosis with numerous varices noted mild ascites and anasarca. CBC/BMP: 05/21/17 0549 05/21/17 0549 Significant Findings Laboratory Tests Test 05/19/17 07:13 05/19/17 17:52 05/20/17 06:14 05/20/17 14:56 Red Cell Distribution Width 19.6 % (11.6-17.2) 20.5 % (11.6-17.2) Neutrophils (%) (Auto) 71.9 % (16.0-70.0) 77.7 % (16.0-70.0) Monocytes (%) (Auto) 10.8 % (0.0-8.0) Blood Urea Nitrogen 5 MG/DL (7-18) 6 MG/DL (7-18) Albumin 2.7 GM/DL (3.4-5.0) 2.6 GM/DL (3.4-5.0) Alkaline Phosphatase 580 U/L (45-117) 643 U/L (45-117) Aspartate Amino Transf (AST/SGOT) 138 U/L (15-37) 184 U/L (15-37) Alanine Aminotransferase (ALT/SGPT) 71 U/L (10-53) 74 U/L (10-53) Total Bilirubin 20.5 MG/DL (0.2-1.0) 24.6 MG/DL (0.2-1.0) Sodium Level 135 MEQ/L (136-145) 128 MEQ/L (136-145) Tumor Marker Alpha Fetoprotein 24.8 NG/ML (0.5-8.0) Prothrombin Time 13.4 SEC (9.8-11.6) Potassium Level 5.6 MEQ/L (3.5-5.1) Estimat Glomerular Filtration Rate 73 ML/MIN (>89) Ferritin 342 NG/ML (8-252) Test 05/21/17 05:49 Red Cell Distribution Width 20.3 % (11.6-17.2) Neutrophils (%) (Auto) 76.0 % (16.0-70.0) Monocytes (%) (Auto) 8.8 % (0.0-8.0) Lymphocytes # (Auto) 0.9 TH/MM3 (1.0-4.8) Blood Urea Nitrogen 6 MG/DL (7-18) Albumin 2.4 GM/DL (3.4-5.0) Alkaline Phosphatase 578 U/L (45-117) Aspartate Amino Transf (AST/SGOT) 132 U/L (15-37) Alanine Aminotransferase (ALT/SGPT) 65 U/L (10-53) Total Bilirubin 23.0 MG/DL (0.2-1.0) Sodium Level 134 MEQ/L (136-145) Imaging Abdomen/Pelvis CT 05/18/17 1368 Signed Impressions: Service Date/Time: Thursday, May 18, 2017 18:37 - CONCLUSION: 1. 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 2. Small right-sided pleural effusion. Liver cirrhosis with numerous varices as above. Mild ascites and anasarca. Satya Bridges MD PE at Discharge GENERAL: Alert, oriented 3, NAD. SKIN: Warm and dry. Diffuse jaundice appearance. HEAD: Normocephalic. EYES: scleral icterus present. No injection or drainage. NECK: Supple, trachea midline. No JVD or lymphadenopathy. CARDIOVASCULAR: Regular rate and rhythm without murmurs, gallops, or rubs. RESPIRATORY: Breath sounds equal bilaterally. No accessory muscle use. GASTROINTESTINAL: Abdomen soft, non-tender, nondistended. MUSCULOSKELETAL: No cyanosis, or edema. BACK: Nontender without obvious deformity. No CVA tenderness. Pt update on day of discharge Patient is doing well. Tolerating diet well. No acute concerns. Cleared for discharge by Oncology and GI. Hospital Course 66-year-old female with no significant medical history other than anemia who presents to the ED and [place] on 05/18/2017 for evaluation of painless jaundice and was found to have a large liver mass on CT scan. She was transferred to [facility] in [place] for further evaluation and management. Probable hepatocellular carcinoma - CT abd/pelvis showed a large liver mass. Images reviewed by me. - consulted gastroenterology and oncology. - CT guided Liver biopsy was done on 05/20/2017. - AFP 24.8, CEA 0.9, CA 19-9 3.4. Elevated liver function tests- secondary to biliary obstruction - Total bilirubin 22.5 on admission - AST 174, ALT 87, alkaline phosphatase 699 on admission. Liver enzymes are gradually improving. GI recommended no procedure at this point. - Acetaminophen less than 2.0 and ethyl alcohol level less than 3 Mild Hypokalemia Mild Hyponatremia - Replaced potassium. K+ 3.8. Na 135. Full code. SCDs. Patient is strongly advised to follow up with Oncology and also GI. Pt Condition on Discharge: Good Discharge Disposition: Discharge Home Discharge Time: <= 30 minutes Discharge Instructions DIET: Follow Instructions for: As Tolerated, No Restrictions Activities you can perform: Regular-No Restrictions Follow up Referrals: Gastroenterology - 2 Weeks with Luan Bello MD Oncology - 1 Week with Mary Perez MD PCP Follow-up - 1 Week New Medications: Amlodipine (Norvasc) 5 Mg Tab 5 MG PO DAILY for Blood Pressure Management, #30 TAB Oxycodone (Oxycodone) 5 Mg Tab 5 MG PO Q6H PRN for PAIN SCALE 4 TO 10, #20 TAB Continued Medications: Ferrous Sulfate (Iron) 325 Mg Cap 324 MG PO DAILY for Nutritional Supplement, #30 TAB 0 Refills Isaac Soria DO May 21, 2017 09:18
[2017-05-21 09:21] VITALS: BP 137/86; PULSE 96; RESP 16; TEMP 97.7; O2SAT 96
[2017-05-21] MEDS: amLODIPine BESYLATE 5 MG TAB PO SCH (09:22)
[2017-05-21] MEDS: FERROUS SULFATE 325 MG (65 MG ELEMENTAL IRON) TAB PO SCH (09:22)
--- NOTE | 2017-05-21 14:09 | PD.ONC.PN ---
Subjective Subjective Remarks Afebrile overnight. Resting in chair next to bed in nad. No complaints. Eager to go home. Objective Data Date Time Temp Pulse Resp B/P (MAP) Pulse Ox O2 Delivery O2 Flow Rate FiO2 05/21/17 09:21 97.7 96 16 137/86 (103) 96 05/21/17 04:35 98.0 87 16 142/77 (98) 94 05/21/17 00:03 98.2 95 18 140/85 (103) 96 05/20/17 20:30 98.6 95 18 143/78 (99) 97 05/20/17 17:00 99.0 87 18 157/87 (110) 100 05/21/17 05/21/17 05/21/17 07:00 15:00 23:00 Intake Total 240 ml Balance 240 ml Result Diagram: 05/21/17 0549 05/21/17 0549 Laboratory Results Laboratory Tests Test 05/20/17 14:56 05/21/17 05:49 White Blood Count 7.2 TH/MM3 6.2 TH/MM3 Red Blood Count 4.67 MIL/MM3 4.16 MIL/MM3 Hemoglobin 14.0 GM/DL 12.7 GM/DL Hematocrit 41.9 % 36.9 % Mean Corpuscular Volume 89.6 FL 88.8 FL Mean Corpuscular Hemoglobin 30.0 PG 30.5 PG Mean Corpuscular Hemoglobin Concent 33.5 % 34.3 % Red Cell Distribution Width 20.5 % 20.3 % Platelet Count 285 TH/MM3 249 TH/MM3 Mean Platelet Volume 8.7 FL 8.5 FL Neutrophils (%) (Auto) 77.7 % 76.0 % Lymphocytes (%) (Auto) 13.3 % 14.2 % Monocytes (%) (Auto) 8.0 % 8.8 % Eosinophils (%) (Auto) 0.5 % 0.7 % Basophils (%) (Auto) 0.5 % 0.3 % Neutrophils # (Auto) 5.6 TH/MM3 4.7 TH/MM3 Lymphocytes # (Auto) 1.0 TH/MM3 0.9 TH/MM3 Monocytes # (Auto) 0.6 TH/MM3 0.5 TH/MM3 Eosinophils # (Auto) 0.0 TH/MM3 0.0 TH/MM3 Basophils # (Auto) 0.0 TH/MM3 0.0 TH/MM3 CBC Comment DIFF FINAL DIFF FINAL Differential Comment Blood Urea Nitrogen 6 MG/DL 6 MG/DL Creatinine 0.79 MG/DL 0.55 MG/DL Random Glucose 75 MG/DL 94 MG/DL Total Protein 8.2 GM/DL 7.2 GM/DL Albumin 2.6 GM/DL 2.4 GM/DL Calcium Level 9.4 MG/DL 8.7 MG/DL Alkaline Phosphatase 643 U/L 578 U/L Aspartate Amino Transf (AST/SGOT) 184 U/L 132 U/L Alanine Aminotransferase (ALT/SGPT) 74 U/L 65 U/L Total Bilirubin 24.6 MG/DL 23.0 MG/DL Sodium Level 128 MEQ/L 134 MEQ/L Potassium Level 5.6 MEQ/L 3.6 MEQ/L Chloride Level 100 MEQ/L 100 MEQ/L Carbon Dioxide Level 21.3 MEQ/L 25.3 MEQ/L Anion Gap 7 MEQ/L 9 MEQ/L Estimat Glomerular Filtration Rate 73 ML/MIN 111 ML/MIN Iron Level 89 MCG/DL Total Iron Binding Capacity 323 MCG/DL Percent Iron Saturation 27.5 % Ferritin 342 NG/ML Administered Medications Medications (Trade) Dose Ordered Sig/Annabelle Route PRN Reason Start Time Stop Time Status Last Admin Dose Admin Sodium Chloride (NS Flush) 2 ml BID IV FLUSH 05/18/17 21:00 05/20/17 20:19 Acetaminophen (Tylenol) 650 mg Q4H PRN PO TEMP > 100.4 05/18/17 21:00 05/19/17 20:24 Ondansetron HCl (Zofran Inj) 4 mg Q6H PRN IVP NAUSEA OR VOMITING 05/18/17 21:00 05/20/17 20:19 Ferrous Sulfate (Ferrous Sulfate) 325 mg DAILY PO 05/19/17 09:00 05/21/17 09:22 Oxycodone HCl (Roxicodone) 5 mg Q6H PRN PO PAIN SCALE 4 TO 10 05/19/17 14:00 05/20/17 23:41 Amlodipine Besylate (Norvasc) 5 mg DAILY PO 05/20/17 19:00 05/21/17 09:22 Objective Remarks GENERAL: Chronically ill appearing female upright in room in [facility]. SKIN: Warm and dry. HEAD: Normocephalic. EYES: No injection or drainage. NECK: Supple, trachea midline. CARDIOVASCULAR: Regular rate and rhythm RESPIRATORY: Breath sounds equal bilaterally. No accessory muscle use. GASTROINTESTINAL: Abdomen soft, non-tender, nondistended. EXTREMITIES: No cyanosis. bilateral lower extremity edema MUSCULOSKELETAL: Adequate muscle tone. NEUROLOGICAL: awake and alert, normal speech. Assessment/Plan Problem List: (1) Liver mass ICD Codes: R16.0 - Hepatomegaly, not elsewhere classified Plan: 05/21: await pathology. ok to follow up in clinic for pathology results. fs faxed to new patient referrals. --CT ab/pelvis showed large 16.8 cm mass in the right lobe of the liver with intrahepatic biliary ductal dilatation and metastatic kizzy adenopathy to the zafar hepatis measuring up to 3.6 cm. ++also a small right-sided pleural effusion noted. also has liver cirrhosis with numerous varices, mild ascites and anasarca. --hepatitis screen negative. --alpha-fetoprotein is 24.8 (2) Obstructive jaundice ICD Codes: K83.8 - Other specified diseases of biliary tract Plan: --GI following --may need ERCP or PTCA Assessment 66y/o female with liver mass highly suspicious for malignancy. Attending Statement The exam, history, and the medical decision-making described in the above note were completed with the assistance of the mid-level provider. I reviewed and agree with the findings presented. I attest that I had a [id number] encounter with the patient on the same day, and personally performed and documented my assessment and findings in the medical record. Denies any new complaints Wants to go home Pathology report is still pending Okay to discharge Will follow In the office Radha Fallon May 21, 2017 14:08 Mary Perez MD May 22, 2017 06:44
[2017-05-23 10:06] LABS: ANA SCREEN POS (NEG)
[2017-05-24 03:51] LABS: MITOCHONDRIAL ABS LESS THAN 20.0 U (<=20.0)
[2017-05-24 16:09] LABS: ANA TITER QUANT >1:1280 (NEG)
== END 2017-05-21 14:57 | disposition home or self-care (01) | DRG 435 ==
LOC: NEDDLT 22:00 → HCIS 22:02
PROVIDERS: ADMIT Hospitalist; ATTEND Hospitalist
PROC: 0FB03ZX Excision of Liver, Percutaneous Approach, Diagnostic (ICD-10-PCS; principal; 2017-05-20)
DX: C22.9 Malignant neoplasm of liver, not specified as primary or secondary (principal); K83.1 Obstruction of bile duct; J91.0 Malignant pleural effusion; R18.8 Other ascites; R16.0 Hepatomegaly, not elsewhere classified; E87.1 Hypo-osmolality and hyponatremia; K74.60 Unspecified cirrhosis of liver; D64.9 Anemia, unspecified; E87.6 Hypokalemia; Z86.73 Personal history of transient ischemic attack (TIA), and cerebral infarction without residual deficits
CPT/HCPCS: 47000; 74177; 77012; 80053; 80074; 80307; 81001; 82103; 82105; 82378; 82390; 82728; 83520; 83540; 83550; 83690; 85025; 85610; 86038; 86039; 86255; 86301; 87086; 88307; 88341; 88342; J2250; J2405; J3010; Q9967